=== PATIENT | male | born 1960 | race Caucasian/White ===

== ENCOUNTER 2021-12-18 10:06 | Emergency (ER) | payer OTHER, BC ==
[2021-12-18] MEDS ORDERED: HYDROcodone/Acetaminophen 10/325 mg Tablet ONE (11:18)
[2021-12-18] MEDS ORDERED: Ketorolac Tromethamine 30 MG/ML VIAL ONE (11:49)
== END 2021-12-18 11:50 | disposition home or self-care (01) ==
LOC: CSHERS 10:06
DX: S22.41XA Multiple fractures of ribs, right side, initial encounter for closed fracture (principal); V89.9XXA Person injured in unspecified vehicle accident, initial encounter; E11.9 Type 2 diabetes mellitus without complications; E78.5 Hyperlipidemia, unspecified; F17.210 Nicotine dependence, cigarettes, uncomplicated
CPT/HCPCS: 94799; 96372; J1885

== ENCOUNTER 2021-12-29 16:25 | Emergency (ER) | payer OTHER, BC ==
[2021-12-29] MEDS ORDERED: HYDROcodone/Acetaminophen 5/325 mg Tablet ONE (17:05)
== END 2021-12-29 17:45 | disposition home or self-care (01) ==
LOC: CSHERS 16:25
DX: J90 Pleural effusion, not elsewhere classified (principal); S22.31XA Fracture of one rib, right side, initial encounter for closed fracture; E11.9 Type 2 diabetes mellitus without complications; E78.5 Hyperlipidemia, unspecified; F17.210 Nicotine dependence, cigarettes, uncomplicated; X50.9XXA Other and unspecified overexertion or strenuous movements or postures, initial encounter
CPT/HCPCS: 71046

== ENCOUNTER 2022-07-21 12:25 | Outpatient (CLI) | payer BC | END 2022-07-21 12:26 | disposition home or self-care (01) | LOC: CSHCT 12:25 | PROVIDERS: ATTEND Family Medicine | DX: Z12.2 Encounter for screening for malignant neoplasm of respiratory organs (principal); F17.210 Nicotine dependence, cigarettes, uncomplicated; S02.609D Fracture of mandible, unspecified, subsequent encounter for fracture with routine healing; J43.9 Emphysema, unspecified | CPT/HCPCS: 71271 ==